=== PATIENT | female | born 1955 | race Caucasian/White ===

== ENCOUNTER → 2017-11-13 12:50 | Outpatient (CLI) | payer OTHER, SELFPAY ==
--- NOTE | 2017-11-13 12:53 | CT_ITS ---
STUDY: CT MAXILLOFACIAL SINUSES REASON FOR EXAM: Female, 61 years old. Evaluate for sinusitis. Pressure across the forehead and into the cheeks RADIATION DOSAGE (If Supplied By Facility): CTDIvol = ( 33.45 ) mGy, DLP = ( 667.65 ) mGycm TECHNIQUE: The patient was scanned in a multi detector CT scanner. High resolution axial imaging was performed without the administration of intravenous contrast material. Sagittal and coronal images were reconstructed. Individualized dose optimization techniques were used for this CT. COMPARISON: None. FINDINGS: FRONTAL SINUSES: Trace sinus mucosal thickening of the right frontal sinus. Left frontal sinus is patent. ETHMOIDAL SINUSES: Trace sinus mucosal disease in the bilateral ethmoid paranasal sinuses MAXILLARY SINUSES: Small maxillary sinus mucosal retention cyst in the inferior aspect of the left maxillary sinus along the medial wall. Otherwise, the maxillary sinuses are clear. SPHENOIDAL SINUSES: Normal aeration, without mucosal inflammatory disease. There is patency of the bilateral maxillary infundibuli with normal uncinate processes, ethmoid bullae, and hiatus semilunaris. Normal bilateral middle turbinates. Normal bilateral inferior turbinates. Normal midline nasal septum. There is patency of the bilateral nasal airways. The visualized osseous structures are normal. The visualized bilateral orbital contents are normal. Fluid within the left mastoid air cells CT/Sinus/Facial Bone IMPRESSION: Trace sinus mucosal disease as above. Fluid in the left mastoid air cells. Electronically Signed: Doug Monson DO at 12:15 EDT Tel , Service support ,
== END ==
PROVIDERS: Visit Provider Otolaryngology Otolaryngology/Facial Plastic Surgery
DX: J32.9 Chronic sinusitis, unspecified (principal)
CPT/HCPCS: 70486